=== PATIENT | female | born 1995 ===

== ENCOUNTER → 2023-03-01 06:29 | Outpatient (CLI) | payer OTHER | END | disposition home or self-care (01) | LOC: LAB 06:29 | DX: N91.2 Amenorrhea, unspecified (principal); E34.9 Endocrine disorder, unspecified; E23.6 Other disorders of pituitary gland; N39.0 Urinary tract infection, site not specified; E88.9 Metabolic disorder, unspecified; A60.04 Herpesviral vulvovaginitis; Z20.828 Contact with and (suspected) exposure to other viral communicable diseases ==